=== PATIENT | female | born 1990 | race Hispanic/Latino ===

== ENCOUNTER 2021-09-10 03:22 | Emergency (ER) | payer SELFPAY ==
[2021-09-10] MEDS ORDERED: ONDANSETRON 4 MG ODT TAB PO ONE (04:02)
[2021-09-10] MEDS ORDERED: ONDANSETRON 4 MG/2 ML INJ IM ONE (04:43)
[2021-09-10] MEDS ORDERED: KETOROLAC 30 MG/1 ML INJ IV ONE (09:28)
[2021-09-10 10:50] LABS: HCG Qualitative,Urine Negative (Negative)
[2021-09-10] MEDS ORDERED: DICYCLOMINE 20 MG/2 ML INJ IM ONE (10:58)
[2021-09-10] MEDS ORDERED: diphenhydrAMINE 50 MG/ML VIAL IV ONE (11:05)
[2021-09-10] MEDS ORDERED: METOCLOPRAMIDE 10 MG/2 ML INJ IV ONE (11:05)
[2021-09-10] MEDS ORDERED: MORPHINE 4 MG/1 ML INJ IV ONE (11:05)
[2021-09-10 11:10] LABS: Color,Urine Straw (Yellow)
[2021-09-10 11:11] LABS: Bilirubin,Urine Negative (Negative); Blood,Urine Small (Negative)
[2021-09-10 11:12] LABS: Urobilinogen,Urine < 2.0 mg/dL (<2.0)
[2021-09-10 11:23] LABS: Mucus,Urine 2+ /HPF; Renal Epithelial Cells,Urine <1 /LPF
--- NOTE | 2021-09-10 11:33 | Cat Scan Report ---
CT ABDOMEN AND PELVIS WITHOUT CONTRAST INDICATION / CLINICAL INFORMATION: flank pain, r/o kidney stone. TECHNIQUE: Axial CT images were obtained through the abdomen and pelvis without IV contrast. All CT scans at [facility] location are performed using CT dose reduction for ALARA by means of automated exposure control. COMPARISON: None available. FINDINGS: LOWER CHEST: No significant abnormality. LIVER: No significant abnormality. GALLBLADDER: No significant abnormality. BILE DUCTS: No significant abnormality. PANCREAS: No significant abnormality. SPLEEN: No significant abnormality. ADRENALS: No significant abnormality. RIGHT KIDNEY and URETER: No significant abnormality. LEFT KIDNEY and URETER: No significant abnormality. STOMACH and SMALL BOWEL: No significant abnormality. COLON: No significant abnormality. APPENDIX: No significant abnormality. PERITONEUM: No free fluid. No free air. No fluid collection. LYMPH NODES: No significant adenopathy. AORTA and ARTERIES: No significant abnormality. IVC and VEINS: No significant abnormality. URINARY BLADDER: No significant abnormality. REPRODUCTIVE ORGANS: No significant abnormality. ADDITIONAL FINDINGS: None. SKELETAL SYSTEM: No significant abnormality. IMPRESSION: 1. No significant abnormality. Signer Name: Castro Paez MD Signed: 09/10/2021 11:29 AM Workstation Name: [id number]
--- NOTE | 2021-09-10 11:42 | Emergency Department Report ---
ED Abdominal Pain HPI - General Chief Complaint: Abdominal Pain Stated Complaint: ABDOMINAL PAIN Time Seen by Provider: 09/10/21 09:27 Source: patient, EMS Mode of arrival: Ambulatory Limitations: No Limitations - History of Present Illness Initial Comments: 31-year-old white female with no past medical history presents to the emergency department for evaluation of 1 week history of abdominal pain to bilateral lower quadrants that radiates to her left lower back with nausea, vomiting, and urinary retention. She states that pain has been severe and persistent. She denies fever, dysuria, and vaginal discharge. MD Complaint: abdominal pain -: week(s) (1) Location: LLQ, RLQ Radiation: none Migration to: no migration Severity scale (0 -10): 10 Quality: aching Consistency: constant Associated Symptoms: nausea, vomiting, diarrhea. denies: fever, chills, dysuria, hematemesis, hematochezia, melena, hematuria, anorexia, syncope - Related Data LMP (females 10-50): last week Previous Rx's Medication Instructions Recorded Last Taken Type Amoxicillin [Amoxicillin TAB] 875 mg PO BID #20 tablet 02/14/16 Unknown Rx Ibuprofen [Motrin] 600 mg PO Q8H PRN #15 tablet 02/14/16 Unknown Rx predniSONE [Deltasone] 50 mg PO QDAY #5 tab 02/14/16 Unknown Rx cephALEXin [Keflex] 500 mg PO Q12HR #14 cap 09/10/21 Unknown Rx Allergies Allergy/AdvReac Type Severity Reaction Status Date / Time No Known Allergies Allergy Verified 09/10/21 08:18 ED Review of Systems ROS: Stated complaint: ABDOMINAL PAIN Other details as noted in HPI Comment: All other systems reviewed and negative Respiratory: denies: shortness of breath, SOB with exertion, SOB at rest Cardiovascular: denies: chest pain, palpitations, dyspnea on exertion, edema, syncope, paroxysmal nocturnal dyspnea Gastrointestinal: abdominal pain, nausea, vomiting, diarrhea. denies: constipation, hematemesis, melena, hematochezia Genitourinary: frequency. denies: urgency, dysuria, discharge, abnormal menses, dyspareunia Musculoskeletal: back pain Neurological: denies: headache, weakness, abnormal gait ED Past Medical Hx - Past Medical History Previous Medical History?: Yes Hx Asthma: Yes - Surgical History Past Surgical History?: No - Social History Smoking Status: Current Every Day Smoker Substance Use Type: None - Medications Home Medications: Home Medications Medication Instructions Recorded Confirmed Last Taken Type Amoxicillin [Amoxicillin TAB] 875 mg PO BID #20 tablet 02/14/16 Unknown Rx Ibuprofen [Motrin] 600 mg PO Q8H PRN #15 tablet 02/14/16 Unknown Rx predniSONE [Deltasone] 50 mg PO QDAY #5 tab 02/14/16 Unknown Rx cephALEXin [Keflex] 500 mg PO Q12HR #14 cap 09/10/21 Unknown Rx ED Physical Exam - General Limitations: No Limitations General appearance: alert, in no apparent distress - Head Head exam: Present: atraumatic, normocephalic - Eye Eye exam: Present: normal appearance. Absent: conjunctival injection - Neck Neck exam: Present: normal inspection. Absent: tenderness - Respiratory Respiratory exam: Present: normal lung sounds bilaterally. Absent: respiratory distress, wheezes, rales, rhonchi, stridor, chest wall tenderness, accessory muscle use - Cardiovascular Cardiovascular Exam: Present: bradycardia, normal heart sounds - GI/Abdominal GI/Abdominal exam: Present: soft, tenderness (Bilateral lower quadrants), normal bowel sounds. Absent: distended, guarding, rebound, rigid - Extremities Exam Extremities exam: Present: normal inspection - Back Exam Back exam: Present: normal inspection. Absent: tenderness, CVA tenderness (R), CVA tenderness (L), paraspinal tenderness, vertebral tenderness - Neurological Exam Neurological exam: Present: alert, oriented X3 - Psychiatric Psychiatric exam: Present: normal affect, normal mood - Skin Skin exam: Present: warm, dry, intact, normal color ED Course Vital Signs 09/10/21 03:24 Temperature 98 F Pulse Rate 50 L Respiratory 18 Rate Blood Pressure 123/101 [Right] O2 Sat by Pulse 98 Oximetry - Reevaluation(s) Reevaluation #1: Patient has been mostly visited screaming and yelling she was noted to be walking around waiting room in no pain but when asked about pain starts yelling and crying again. Right now pain resolved after a dose of morphine. 09/10/21 11:43 ED Medical Decision Making - Radiology Data Radiology results: report reviewed CT of the abdomen and pelvis: IMPRESSION: 1. No significant abnormality. - Medical Decision Making 31-year-old white female with no past medical history presents to the emergency department for evaluation of 1 week history of abdominal pain to bilateral lower quadrants that radiates to her left lower back with nausea, vomiting, and urinary retention. She states that pain has been severe and persistent. She denies fever, dysuria, and vaginal discharge. CT scan without any acute abnormalities noted. Urine positive for urinary tract infection. Patient will be treated with 7-day course of Keflex for UTI and advised to follow-up with GI for further evaluation and management of abdominal pain. She was advised to return to the emergency department for worsening symptoms. Critical care attestation.: If time is entered above; I have spent that time in minutes in the direct care of this critically ill patient, excluding procedure time. ED Disposition Clinical Impression: Urinary tract infection Qualifiers: Urinary tract infection type: acute cystitis Hematuria presence: with hematuria Qualified Code(s): N30.01 - Acute cystitis with hematuria Abdominal pain Qualifiers: Abdominal location: lower abdomen, unspecified Qualified Code(s): R10.30 - Lower abdominal pain, unspecified Disposition: HOME / SELF CARE / HOMELESS Is pt being admited?: No Does the pt Need Aspirin: No Condition: Stable Instructions: Abdominal Pain (ED), Antibiotic Medicine, Adult, [id number], Abdominal Pain, Adult, [id number], Urinary Tract Infection, Adult, Easy-to- Read Additional Instructions: Take medications as prescribed. Follow-up with GI doctor for further evaluation and management of abdominal pain. Return to the emergency department for any worsening symptoms. Prescriptions: cephALEXin [Keflex] 500 mg PO Q12HR #14 cap Referrals: GIORGIO GONZALEZ MD [Referring] - 3-5 Days LASHAE NEVAREZ MD [Staff Physician] - 3-5 Days Time of Disposition: 11:47
[2021-09-10 12:28] VITALS: BP 137/67
== END 2021-09-10 12:27 | disposition home or self-care (01) ==
LOC: ED 03:22
DX: N39.0 Urinary tract infection, site not specified (principal); R10.9 Unspecified abdominal pain; F17.200 Nicotine dependence, unspecified, uncomplicated
CPT/HCPCS: 74176; 81001; 81025; 87086; 96372; 96374; 96375; 99284; J1200; J1885; J2270; J2405; J2765; J3490; Q0162